=== PATIENT | male | born 1970 | race Caucasian/White ===

== ENCOUNTER → 2017-11-24 | Outpatient (CLI) | payer MEDICAID ==
[~2017-11-24] MED LIST: AMLO-512 PO; ATEN50TA PO; INSLAN SQ; INSU100C14 SQ
[2017-11-24 13:10] LABS: CALCIUM, TOTAL 8.2 mg/dL (8.8-10.5); CREATININE 4.76 mg/dL (0.60-1.30); MAGNESIUM 1.8 mg/dL (1.80-2.40); POTASSIUM 4.6 mmol/L (3.5-5.1)
== END | disposition home or self-care (01) ==
LOC: LABPV 09:42
PROVIDERS: ATTEND Internal Medicine
DX: N17.9 Acute kidney failure, unspecified (principal); R79.89 Other specified abnormal findings of blood chemistry
CPT/HCPCS: 83735

== ENCOUNTER 2018-02-02 16:25 | Inpatient (IN) | payer SELFPAY ==
[~2018-02-02] VITALS: Ht 177.8 cm; Wt 94.4 kg
[2018-02-02 16:54] LABS: GLUCOSE,POINT OF CARE 155 MG/DL (70-110)
[2018-02-02] MEDS ORDERED: AmLODIPine BESYLATE 5 MG TABLET PO ONE (18:45)
[2018-02-02] MEDS ORDERED: ATENOLOL 50 MG TABLET PO ONE (18:45)
[2018-02-02 19:04] LABS: HEMATOCRIT 30.3 % (41-53); HEMOGLOBIN 10.1 g/dL (13.5-17.5); LYMPHOCYTES # (AUTO) 2.1 K/uL (1.0-4.8); LYMPHOCYTES % (AUTO) 12.3 % (22.0-44.0); MEAN CORPUSCULAR HGB CONC 33.4 G/dL (31.0-37.0); MEAN CORPUSCULAR VOLUME 84 fL (80-100); MONOCYTES # (AUTO) 0.8 K/uL (0.1-1.0); MONOCYTES % (AUTO) 4.9 % (2.0-9.0); NEUTROPHILS % (AUTO) 47.2 % (40.0-70.0); PLATELET COUNT (AUTO) 354 K/uL (150-450); RED BLOOD CELL COUNT(AUTO) 3.62 MIL/uL (4.50-5.90)
[2018-02-02 19:07] LABS: EOSINOPHILS % (AUTO) 34.6 % (1.0-6.0)
[2018-02-02 19:18] LABS: CREATININE 6.14 mg/dL (0.60-1.30); POTASSIUM 4.2 mmol/L (3.5-5.1)
[2018-02-02 19:23] LABS: BILIRUBIN,TOTAL 0.2 mg/dL (0.1-1.0); TOTAL PROTEIN, SERUM 5.6 g/dL (6.4-8.2)
[2018-02-02 20:10] LABS: APPEARANCE,URINE CLEAR (CLEAR); BILIRUBIN,URINE NEGATIVE (NEGATIVE); GLUCOSE, URINE (UA) 500 mg/dL (NEGATIVE); KETONES,URINE NEGATIVE (NEGATIVE); LEUKOCYTE ESTERASE ,URINE NEGATIVE (NEGATIVE); NITRATE,URINE NEGATIVE (NEGATIVE); OCCULT BLOOD,URINE SMALL (NEGATIVE); PROTEIN,URINE SEE CONFIRM (NEGATIVE); UROBILINOGEN,URINE 0.2 mg/dL (<=1.0)
[2018-02-02 20:31] LABS: SULFOSALICYLIC ACID,URINE 4+ (Negative)
[2018-02-02 20:32] LABS: RBC,URINE 0-2 /HPF (0-2); WBC,URINE 0-2 /HPF (0-5)
[2018-02-02 20:37] LABS: BACTERIA,URINE Rare /HPF (None Seen); SQUAMOUS EPITHELIAL CELL,UR Few /LPF (None Seen)
[2018-02-02 20:40] LABS: COARSE GRANULAR CASTS,URINE 0-2 /LPF (None Seen)
[2018-02-02] MEDS ORDERED: ACETAMINOPHEN 325 MG TABLET PO PRN (22:00)
[2018-02-02] MEDS ORDERED: 0.9% SODIUM CHLORIDE 10 ML SYRINGE IVP PRN (22:00)
[2018-02-02] MEDS ORDERED: ONDANSETRON HCL 4 MG/2 ML VIAL IVP PRN (22:00)
[2018-02-02] MEDS ORDERED: FUROSEMIDE 40 MG/4 ML VIAL IVP ONE (22:30)
[2018-02-02 23:11] VITALS: BP 183/92
[2018-02-03 04:41] VITALS: BP 179/92
[2018-02-03] MEDS ORDERED: DEXTROSE 50%-WATER 25 GM/50 ML SYRINGE IVP PRN (06:30)
[2018-02-03] MEDS: AmLODIPine BESYLATE 10 MG TABLET PO SCH (07:29)
[2018-02-03 08:04] LABS: GLUCOMETER DEV NAME(LOC) 5S 2Q; GLUCOSE,POINT OF CARE 112 MG/DL (70-110)
[2018-02-03] MEDS ORDERED: INSULIN LISPRO 100 UNITS/ML SQ PRN (08:15)
[2018-02-03] MEDS ORDERED: GLUCAGON,HUMAN RECOMBINANT 1 MG VIAL IM PRN (08:15)
[2018-02-03] MEDS ORDERED: ZOLPIDEM TARTRATE 5 MG TABLET PO PRN (08:15)
[2018-02-03] MEDS: IPRATROPIUM BROMIDE 0.5 MG/2.5 ML NEB SOLUTION NEB SCH ×3 (08:15→20:20)
[2018-02-03] MEDS ORDERED: ONDANSETRON HCL 4 MG/2 ML VIAL IVP PRN (08:15)
[2018-02-03] MEDS ORDERED: ALBUTEROL SULFATE 2.5 MG/0.5 ML NEB SOLUTION NEB PRN (08:15)
[2018-02-03] MEDS ORDERED: IPRATROPIUM BROMIDE 0.5 MG/2.5 ML NEB SOLUTION NEB PRN (08:15)
[2018-02-03] MEDS ORDERED: 0.9% SODIUM CHLORIDE 10 ML SYRINGE IVP PRN (08:15)
[2018-02-03] MEDS: ALBUTEROL SULFATE 2.5 MG/0.5 ML NEB SOLUTION NEB SCH ×3 (08:15→20:20)
[2018-02-03 09:14] LABS: CHOL/HDL RATIO 5.6 (4.2-7.3); THYROID STIMULATING HORMONE 1.51 uIU/mL (0.36-3.74)
[2018-02-03 09:16] LABS: HEMOGLOBIN A1C 6.1 % (4.5-6.2)
[2018-02-03] MEDS: HEPARIN SODIUM,PORCINE 5,000 UNITS/ML VIAL SQ SCH ×3 (09:48→23:12)
[2018-02-03] MEDS: PANTOPRAZOLE SODIUM 40 MG/VIAL IVP SCH (09:48)
[2018-02-03] MEDS: FUROSEMIDE 40 MG/4 ML VIAL IVP SCH ×2 (09:48→20:38)
[2018-02-03] MEDS: DiphenhydrAMINE HCL 25 MG CAPSULE PO PRN ×2 (09:48→17:54)
[2018-02-03] MEDS: ATENOLOL 50 MG TABLET PO SCH (11:06)
[2018-02-03 11:35] VITALS: BP 145/80
[2018-02-03] MEDS: INSULIN LISPRO 100 UNITS/ML SQ PRN ×3 (11:39→20:41)
[2018-02-03 12:06] LABS: % IRON SATURATION 26.2 % (30-44)
[2018-02-03 13:02] LABS: FOLATE SERUM 5.7 ng/mL (5.4-)
[2018-02-03 14:18] LABS: GLUCOMETER DEV NAME(LOC) 5S 2Q; GLUCOSE,POINT OF CARE 163 MG/DL (70-110)
[2018-02-03 14:36] VITALS: BP 145/74
[2018-02-03 19:35] VITALS: BP 172/74
[2018-02-03 19:52] LABS: GLUCOMETER DEV NAME(LOC) 5S 2Q; GLUCOSE,POINT OF CARE 216 MG/DL (70-110)
[2018-02-03] MEDS: INSULIN GLARGINE,HUM.REC.ANLOG 100 UNITS/ML SQ SCH (20:42)
[2018-02-03 23:04] VITALS: BP 179/88
[2018-02-03] MEDS: CloNIDine HCL 0.1 MG TABLET PO PRN (23:12)
[2018-02-04 00:23] LABS: GLUCOMETER DEV NAME(LOC) 5S 2Q; GLUCOSE,POINT OF CARE 163 MG/DL (70-110)
[2018-02-04] MEDS: ALBUTEROL SULFATE 2.5 MG/0.5 ML NEB SOLUTION NEB SCH ×4 (02:00→19:02)
[2018-02-04] MEDS: IPRATROPIUM BROMIDE 0.5 MG/2.5 ML NEB SOLUTION NEB SCH ×4 (02:00→19:02)
[2018-02-04 03:49] VITALS: BP 168/79
[2018-02-04 06:39] LABS: BASOPHILS % (AUTO) 0.9 % (0.0-2.0); HEMATOCRIT 27.5 % (41-53); HEMOGLOBIN 9.5 g/dL (13.5-17.5); LYMPHOCYTES # (AUTO) 2.6 K/uL (1.0-4.8); MEAN CORPUSCULAR HEMOGLOBIN 28.4 pg (26.0-34.0); MEAN CORPUSCULAR HGB CONC 34.5 G/dL (31.0-37.0); MEAN CORPUSCULAR VOLUME 83 fL (80-100); MONOCYTES # (AUTO) 0.7 K/uL (0.1-1.0); MONOCYTES % (AUTO) 4.1 % (2.0-9.0); NEUTROPHILS # (AUTO) 7.3 K/uL (1.8-7.7); NEUTROPHILS % (AUTO) 42.9 % (40.0-70.0); PLATELET COUNT (AUTO) 323 K/uL (150-450); RED BLOOD CELL COUNT(AUTO) 3.34 MIL/uL (4.50-5.90); RED CELL DISTRIBUTION WIDTH 14.9 % (11.5-14.5)
[2018-02-04 06:45] LABS: CALCIUM, TOTAL 7.2 mg/dL (8.8-10.5); CREATININE 6.58 mg/dL (0.60-1.30); MAGNESIUM 1.6 mg/dL (1.80-2.40); POTASSIUM 4.5 mmol/L (3.5-5.1)
[2018-02-04 06:58] LABS: EOSINOPHILS % (AUTO) 37.1 % (1.0-6.0)
[2018-02-04 07:34] VITALS: BP 158/86
[2018-02-04] MEDS: HEPARIN SODIUM,PORCINE 5,000 UNITS/ML VIAL SQ SCH ×3 (08:14→23:53)
[2018-02-04] MEDS: AmLODIPine BESYLATE 10 MG TABLET PO SCH (08:14)
[2018-02-04] MEDS: PANTOPRAZOLE SODIUM 40 MG/VIAL IVP SCH (08:15)
[2018-02-04] MEDS: FUROSEMIDE 40 MG/4 ML VIAL IVP SCH ×2 (08:15→21:07)
[2018-02-04] MEDS: ATENOLOL 50 MG TABLET PO SCH (09:43)
[2018-02-04] MEDS: CHOLECALCIFEROL (VIT D3) 1,000 UNITS TABLET PO SCH (09:43)
[2018-02-04 10:40] VITALS: BP 171/87
[2018-02-04 11:10] VITALS: BP 160/85
[2018-02-04] MEDS ORDERED: MAGNESIUM SULFATE 3 GM in DEXTROSE 5%-WATER 100 ML IV ONE (13:00)
[2018-02-04] MEDS ORDERED: SODIUM CHLORIDE 0.9% 100 ML ONE (13:06)
[2018-02-04] MEDS: SOD FERRIC GLUC COMPLX/SUCROSE 125 MG in SODIUM CHLORIDE 0.9% 100 ML IV SCH (13:14)
[2018-02-04 14:47] VITALS: BP 150/81
[2018-02-04 16:41] LABS: CREATININE,URINE 46.5 mg/dL (30.0-125.0)
[2018-02-04] MEDS: DiphenhydrAMINE HCL 25 MG CAPSULE PO PRN (16:45)
[2018-02-04 16:52] LABS: CREATININE,SERUM FOR CRCL 6.58 mg/dL (0.60-1.30)
[2018-02-04] MEDS: INSULIN LISPRO 100 UNITS/ML SQ PRN (17:57)
[2018-02-04 20:19] VITALS: BP 149/86
[2018-02-04] MEDS: INSULIN GLARGINE,HUM.REC.ANLOG 100 UNITS/ML SQ SCH (21:12)
[2018-02-05] VITALS (8 sets, daily range): BP systolic 149–180; BP diastolic 72–90
[2018-02-05] MEDS: ALBUTEROL SULFATE 2.5 MG/0.5 ML NEB SOLUTION NEB SCH ×4 (01:57→20:36)
[2018-02-05] MEDS: IPRATROPIUM BROMIDE 0.5 MG/2.5 ML NEB SOLUTION NEB SCH ×4 (01:57→20:36)
[2018-02-05 03:14] LABS: GLUCOMETER DEV NAME(LOC) 5S 2Q; GLUCOSE,POINT OF CARE 136 MG/DL (70-110)
[2018-02-05 03:14] LABS: GLUCOMETER DEV NAME(LOC) 5S 2Q; GLUCOSE,POINT OF CARE 136 MG/DL (70-110)
[2018-02-05 03:14] LABS: GLUCOMETER DEV NAME(LOC) 5S 1M; GLUCOSE,POINT OF CARE 181 MG/DL (70-110)
[2018-02-05 03:14] LABS: GLUCOMETER DEV NAME(LOC) 5S 1M; GLUCOSE,POINT OF CARE 88 MG/DL (70-110)
[2018-02-05 06:39] LABS: GLUCOMETER DEV NAME(LOC) 5S 2Q; GLUCOSE,POINT OF CARE 94 MG/DL (70-110)
[2018-02-05 07:20] LABS: BASOPHILS % (AUTO) 0.8 % (0.0-2.0); HEMATOCRIT 28.9 % (41-53); HEMOGLOBIN 9.7 g/dL (13.5-17.5); LYMPHOCYTES # (AUTO) 2.1 K/uL (1.0-4.8); LYMPHOCYTES % (AUTO) 13.3 % (22.0-44.0); MEAN CORPUSCULAR HEMOGLOBIN 27.8 pg (26.0-34.0); MEAN CORPUSCULAR HGB CONC 33.7 G/dL (31.0-37.0); MEAN CORPUSCULAR VOLUME 83 fL (80-100); MONOCYTES # (AUTO) 0.7 K/uL (0.1-1.0); MONOCYTES % (AUTO) 4.6 % (2.0-9.0); NEUTROPHILS # (AUTO) 7.4 K/uL (1.8-7.7); NEUTROPHILS % (AUTO) 45.7 % (40.0-70.0); PLATELET COUNT (AUTO) 338 K/uL (150-450); RED CELL DISTRIBUTION WIDTH 14.6 % (11.5-14.5)
[2018-02-05 07:31] LABS: EOSINOPHILS % (AUTO) 35.6 % (1.0-6.0)
[2018-02-05 07:49] LABS: CALCIUM, TOTAL 7.3 mg/dL (8.8-10.5); CREATININE 6.89 mg/dL (0.60-1.30); MAGNESIUM 2.3 mg/dL (1.80-2.40); PHOSPHORUS 5.7 mg/dL (2.5-4.9); POTASSIUM 4.5 mmol/L (3.5-5.1)
[2018-02-05] MEDS: HEPARIN SODIUM,PORCINE 5,000 UNITS/ML VIAL SQ SCH ×2 (08:00→16:00)
[2018-02-05] MEDS: FUROSEMIDE 40 MG/4 ML VIAL IVP SCH ×2 (08:15→20:22)
[2018-02-05] MEDS: ATENOLOL 50 MG TABLET PO SCH (08:15)
[2018-02-05] MEDS: CHOLECALCIFEROL (VIT D3) 1,000 UNITS TABLET PO SCH (08:15)
[2018-02-05] MEDS: PANTOPRAZOLE SODIUM 40 MG/VIAL IVP SCH (08:16)
[2018-02-05] MEDS: AmLODIPine BESYLATE 10 MG TABLET PO SCH (11:09)
[2018-02-05] MEDS: INSULIN LISPRO 100 UNITS/ML SQ PRN ×3 (11:55→20:23)
[2018-02-05] MEDS ORDERED: HEPARIN SODIUM 1000 UNITS/NS 500 ML ONE (12:32)
[2018-02-05] MEDS ORDERED: LIDOCAINE HCL/PF 1% 30 ML VIAL ONE (12:32)
[2018-02-05] MEDS ORDERED: HEPARIN SODIUM,PORCINE 1,000 UNITS/ML 10 ML VIAL ONE (12:33)
[2018-02-05] MEDS: SOD FERRIC GLUC COMPLX/SUCROSE 125 MG in SODIUM CHLORIDE 0.9% 100 ML IV SCH (13:06)
[2018-02-05] MEDS ORDERED: NALOXONE HCL 0.4 MG/ML VIAL ONE (13:28)
[2018-02-05] MEDS ORDERED: FentaNYL CITRATE-PF 100 MCG/2 ML VIAL ONE (13:28)
[2018-02-05] MEDS ORDERED: MIDAZOLAM HCL 2 MG/2 ML VIAL ONE (13:28)
[2018-02-05] MEDS ORDERED: FLUMAZENIL 0.1 MG/ML 5 ML VIAL IVP ONE (13:29)
[2018-02-05] MEDS ORDERED: VANCOMYCIN HCL 1 GM/D5% WATER 200 ML IV ONE ×2 (13:45→14:05)
[2018-02-05] MEDS ORDERED: MIDAZOLAM HCL 2 MG/2 ML VIAL IVP ONE (14:21)
[2018-02-05] MEDS ORDERED: FentaNYL CITRATE-PF 100 MCG/2 ML VIAL IVP ONE (14:21)
[2018-02-05] MEDS ORDERED: ACETAMINOPHEN 650 MG/20.3 ML SOLUTION UDCUP PO PRN (16:45)
[2018-02-05] MEDS: ACETAMINOPHEN 325 MG TABLET PO PRN ×2 (16:52→20:22)
[2018-02-05 19:52] LABS: GLUCOMETER DEV NAME(LOC) 5S 2Q; GLUCOSE,POINT OF CARE 186 MG/DL (70-110)
[2018-02-05 20:04] LABS: GLUCOMETER DEV NAME(LOC) 5S 1M; GLUCOSE,POINT OF CARE 148 MG/DL (70-110)
[2018-02-05] MEDS: DiphenhydrAMINE HCL 25 MG CAPSULE PO PRN (20:22)
[2018-02-05] MEDS: INSULIN GLARGINE,HUM.REC.ANLOG 100 UNITS/ML SQ SCH (20:23)
[2018-02-06] VITALS (7 sets, daily range): BP systolic 116–177; BP diastolic 71–92
[2018-02-06] MEDS: HEPARIN SODIUM,PORCINE 5,000 UNITS/ML VIAL SQ SCH ×4 (00:02→23:53)
[2018-02-06] MEDS: IPRATROPIUM BROMIDE 0.5 MG/2.5 ML NEB SOLUTION NEB SCH ×4 (02:00→20:00)
[2018-02-06] MEDS: ALBUTEROL SULFATE 2.5 MG/0.5 ML NEB SOLUTION NEB SCH ×4 (02:00→20:00)
[2018-02-06 06:06] LABS: BASOPHILS % (AUTO) 0.8 % (0.0-2.0); HEMATOCRIT 30.9 % (41-53); HEMOGLOBIN 10.4 g/dL (13.5-17.5); LYMPHOCYTES # (AUTO) 1.4 K/uL (1.0-4.8); LYMPHOCYTES % (AUTO) 9.5 % (22.0-44.0); MEAN CORPUSCULAR HEMOGLOBIN 27.8 pg (26.0-34.0); MEAN CORPUSCULAR HGB CONC 33.8 G/dL (31.0-37.0); MEAN CORPUSCULAR VOLUME 82 fL (80-100); MONOCYTES # (AUTO) 0.6 K/uL (0.1-1.0); MONOCYTES % (AUTO) 4.3 % (2.0-9.0); NEUTROPHILS # (AUTO) 7.5 K/uL (1.8-7.7); NEUTROPHILS % (AUTO) 52.5 % (40.0-70.0); PLATELET COUNT (AUTO) 314 K/uL (150-450); RED BLOOD CELL COUNT(AUTO) 3.76 MIL/uL (4.50-5.90); RED CELL DISTRIBUTION WIDTH 14.9 % (11.5-14.5)
[2018-02-06 06:19] LABS: CALCIUM, TOTAL 7.5 mg/dL (8.8-10.5); CREATININE 5.32 mg/dL (0.60-1.30); MAGNESIUM 1.9 mg/dL (1.80-2.40); POTASSIUM 4.1 mmol/L (3.5-5.1)
[2018-02-06 06:42] LABS: EOSINOPHILS % (AUTO) 32.9 % (1.0-6.0)
[2018-02-06] MEDS: PANTOPRAZOLE SODIUM 40 MG/VIAL IVP SCH (08:44)
[2018-02-06] MEDS: CHOLECALCIFEROL (VIT D3) 1,000 UNITS TABLET PO SCH (08:44)
[2018-02-06] MEDS: FUROSEMIDE 40 MG/4 ML VIAL IVP SCH ×2 (08:44→21:31)
[2018-02-06] MEDS ORDERED: CALCITRIOL 0.25 MCG CAPSULE PO ONE (09:00)
[2018-02-06 11:33] LABS: GLUCOMETER DEV NAME(LOC) 5S 1M; GLUCOSE,POINT OF CARE 159 MG/DL (70-110)
[2018-02-06 11:33] LABS: GLUCOMETER DEV NAME(LOC) 5S 2Q; GLUCOSE,POINT OF CARE 83 MG/DL (70-110)
[2018-02-06] MEDS: AmLODIPine BESYLATE 10 MG TABLET PO SCH (11:34)
[2018-02-06] MEDS: ATENOLOL 50 MG TABLET PO SCH (11:34)
[2018-02-06] MEDS: SOD FERRIC GLUC COMPLX/SUCROSE 125 MG in SODIUM CHLORIDE 0.9% 100 ML IV SCH (15:27)
[2018-02-06] MEDS ORDERED: HEPARIN SODIUM,PORCINE 1,000 UNITS/ML VIAL IVP ONE (17:25)
[2018-02-06 17:28] LABS: GLUCOMETER DEV NAME(LOC) 5S 2Q; GLUCOSE,POINT OF CARE 139 MG/DL (70-110)
[2018-02-06 17:28] LABS: GLUCOMETER DEV NAME(LOC) 5S 1M; GLUCOSE,POINT OF CARE 216 MG/DL (70-110)
[2018-02-06] MEDS: INSULIN LISPRO 100 UNITS/ML SQ PRN ×2 (17:48→21:34)
[2018-02-06] MEDS: INSULIN GLARGINE,HUM.REC.ANLOG 100 UNITS/ML SQ SCH (21:33)
[2018-02-07 00:08] LABS: GLUCOMETER DEV NAME(LOC) 6N 2D; GLUCOSE,POINT OF CARE 214 MG/DL (70-110)
[2018-02-07] MEDS: ALBUTEROL SULFATE 2.5 MG/0.5 ML NEB SOLUTION NEB SCH ×4 (02:00→20:50)
[2018-02-07] MEDS: IPRATROPIUM BROMIDE 0.5 MG/2.5 ML NEB SOLUTION NEB SCH ×4 (02:00→20:50)
[2018-02-07 04:23] VITALS: BP 146/80
[2018-02-07 07:14] LABS: GLUCOMETER DEV NAME(LOC) 6N 2D; GLUCOSE,POINT OF CARE 83 MG/DL (70-110)
[2018-02-07] MEDS: AmLODIPine BESYLATE 10 MG TABLET PO SCH (08:59)
[2018-02-07] MEDS: PANTOPRAZOLE SODIUM 40 MG/VIAL IVP SCH (08:59)
[2018-02-07] MEDS: FUROSEMIDE 40 MG/4 ML VIAL IVP SCH ×2 (08:59→20:42)
[2018-02-07] MEDS: HEPARIN SODIUM,PORCINE 5,000 UNITS/ML VIAL SQ SCH ×2 (08:59→16:00)
[2018-02-07] MEDS: ATENOLOL 50 MG TABLET PO SCH (09:00)
[2018-02-07 09:10] VITALS: BP 157/84
[2018-02-07 11:53] VITALS: BP 156/83
[2018-02-07] MEDS ORDERED: SODIUM CHLORIDE 0.9% 250 ML IV ONE (15:34)
[2018-02-07] MEDS: SOD FERRIC GLUC COMPLX/SUCROSE 125 MG in SODIUM CHLORIDE 0.9% 100 ML IV SCH (15:44)
[2018-02-07] MEDS ORDERED: HEPARIN SODIUM,PORCINE 1,000 UNITS/ML VIAL IVP ONE (16:22)
[2018-02-07 16:25] VITALS: BP 153/82
[2018-02-07] MEDS: INSULIN LISPRO 100 UNITS/ML SQ PRN ×2 (17:35→20:41)
[2018-02-07 18:04] LABS: GLUCOMETER DEV NAME(LOC) 6N 1E; GLUCOSE,POINT OF CARE 224 MG/DL (70-110)
[2018-02-07 19:30] LABS: GLUCOMETER DEV NAME(LOC) 6N 2D; GLUCOSE,POINT OF CARE 132 MG/DL (70-110)
[2018-02-07 19:44] VITALS: BP 162/90
[2018-02-07] MEDS: INSULIN GLARGINE,HUM.REC.ANLOG 100 UNITS/ML SQ SCH (20:42)
[2018-02-07 22:19] LABS: GLUCOMETER DEV NAME(LOC) 6N 2D; GLUCOSE,POINT OF CARE 163 MG/DL (70-110)
[2018-02-07 23:18] VITALS: BP 141/62
[2018-02-08] MEDS: HEPARIN SODIUM,PORCINE 5,000 UNITS/ML VIAL SQ SCH ×3 (00:23→16:00)
[2018-02-08] MEDS: IPRATROPIUM BROMIDE 0.5 MG/2.5 ML NEB SOLUTION NEB SCH ×4 (02:00→20:00)
[2018-02-08] MEDS: ALBUTEROL SULFATE 2.5 MG/0.5 ML NEB SOLUTION NEB SCH ×4 (02:00→20:00)
[2018-02-08 04:42] VITALS: BP 145/79
[2018-02-08] MEDS ORDERED: SODIUM CHLORIDE 0.9% 1,000 ML IV ONE ×2 (05:42)
[2018-02-08 06:18] LABS: BASOPHILS % (AUTO) 0.7 % (0.0-2.0); HEMATOCRIT 28.3 % (41-53); HEMOGLOBIN 9.7 g/dL (13.5-17.5); LYMPHOCYTES # (AUTO) 2.1 K/uL (1.0-4.8); LYMPHOCYTES % (AUTO) 14.7 % (22.0-44.0); MEAN CORPUSCULAR HEMOGLOBIN 28.3 pg (26.0-34.0); MEAN CORPUSCULAR HGB CONC 34.4 G/dL (31.0-37.0); MEAN CORPUSCULAR VOLUME 82 fL (80-100); MONOCYTES # (AUTO) 1.1 K/uL (0.1-1.0); MONOCYTES % (AUTO) 7.4 % (2.0-9.0); NEUTROPHILS # (AUTO) 6.5 K/uL (1.8-7.7); NEUTROPHILS % (AUTO) 45.5 % (40.0-70.0); PLATELET COUNT (AUTO) 271 K/uL (150-450); RED BLOOD CELL COUNT(AUTO) 3.44 MIL/uL (4.50-5.90); RED CELL DISTRIBUTION WIDTH 15.2 % (11.5-14.5)
[2018-02-08 06:21] LABS: EOSINOPHILS % (AUTO) 31.7 % (1.0-6.0)
[2018-02-08 06:32] LABS: CALCIUM, TOTAL 7.1 mg/dL (8.8-10.5); CREATININE 5.48 mg/dL (0.60-1.30); MAGNESIUM 1.7 mg/dL (1.80-2.40); POTASSIUM 4.4 mmol/L (3.5-5.1)
[2018-02-08 06:55] LABS: GLUCOMETER DEV NAME(LOC) 6N 1E; GLUCOSE,POINT OF CARE 112 MG/DL (70-110)
[2018-02-08] MEDS: PANTOPRAZOLE SODIUM 40 MG/VIAL IVP SCH (08:30)
[2018-02-08] MEDS: ATENOLOL 50 MG TABLET PO SCH (09:25)
[2018-02-08] MEDS: FUROSEMIDE 40 MG/4 ML VIAL IVP SCH ×2 (09:25→21:25)
[2018-02-08] MEDS: AmLODIPine BESYLATE 10 MG TABLET PO SCH (09:25)
[2018-02-08 11:19] VITALS: BP 164/85
[2018-02-08] MEDS: EPOETIN ALFA 10,000 UNITS/ML VIAL SQ SCH (11:22)
[2018-02-08] MEDS: INSULIN LISPRO 100 UNITS/ML SQ PRN ×3 (12:04→21:35)
[2018-02-08] MEDS: SOD FERRIC GLUC COMPLX/SUCROSE 125 MG in SODIUM CHLORIDE 0.9% 100 ML IV SCH (15:03)
[2018-02-08 15:58] VITALS: BP 158/84
[2018-02-08] MEDS ORDERED: HEPARIN SODIUM,PORCINE 1,000 UNITS/ML VIAL ONE (17:29)
[2018-02-08 17:34] LABS: GLUCOMETER DEV NAME(LOC) 6N 1E; GLUCOSE,POINT OF CARE 156 MG/DL (70-110)
[2018-02-08 18:18] LABS: GLUCOMETER DEV NAME(LOC) 6N 1E; GLUCOSE,POINT OF CARE 173 MG/DL (70-110)
[2018-02-08 19:24] VITALS: BP 160/78
[2018-02-08] MEDS: INSULIN GLARGINE,HUM.REC.ANLOG 100 UNITS/ML SQ SCH (21:28)
[2018-02-09] VITALS (7 sets, daily range): BP systolic 141–163; BP diastolic 68–86
[2018-02-09] MEDS: CloNIDine HCL 0.1 MG TABLET PO PRN (00:43)
[2018-02-09] MEDS: HEPARIN SODIUM,PORCINE 5,000 UNITS/ML VIAL SQ SCH ×4 (00:44→23:28)
[2018-02-09] MEDS: IPRATROPIUM BROMIDE 0.5 MG/2.5 ML NEB SOLUTION NEB SCH ×4 (02:00→20:00)
[2018-02-09] MEDS: ALBUTEROL SULFATE 2.5 MG/0.5 ML NEB SOLUTION NEB SCH ×4 (02:00→20:00)
[2018-02-09 02:19] LABS: GLUCOMETER DEV NAME(LOC) 6N 1E; GLUCOSE,POINT OF CARE 150 MG/DL (70-110)
[2018-02-09 07:08] LABS: GLUCOMETER DEV NAME(LOC) 6N 2D; GLUCOSE,POINT OF CARE 86 MG/DL (70-110)
[2018-02-09] MEDS: AmLODIPine BESYLATE 10 MG TABLET PO SCH (09:22)
[2018-02-09] MEDS: FUROSEMIDE 40 MG/4 ML VIAL IVP SCH ×2 (09:22→20:01)
[2018-02-09] MEDS: ATENOLOL 50 MG TABLET PO SCH (09:22)
[2018-02-09] MEDS: PANTOPRAZOLE SODIUM 40 MG/VIAL IVP SCH (09:25)
[2018-02-09] MEDS: SOD FERRIC GLUC COMPLX/SUCROSE 125 MG in SODIUM CHLORIDE 0.9% 100 ML IV SCH (11:23)
[2018-02-09] MEDS ORDERED: SODIUM CHLORIDE 0.9% 1,000 ML IV ONE ×2 (12:00→14:00)
[2018-02-09 12:04] LABS: GLUCOMETER DEV NAME(LOC) 6N 1E; GLUCOSE,POINT OF CARE 81 MG/DL (70-110)
[2018-02-09] MEDS ORDERED: LIDOCAINE HCL/PF 1% 30 ML VIAL ONE (12:17)
[2018-02-09] MEDS ORDERED: HEPARIN SODIUM,PORCINE 5,000 UNITS/ML VIAL SQ ONE (12:20)
[2018-02-09] MEDS ORDERED: SODIUM CHLORIDE 0.9% 250 ML IV ONE (12:21)
[2018-02-09] MEDS ORDERED: FentaNYL CITRATE-PF 100 MCG/2 ML VIAL IVP PRN ×2 (13:30→13:45)
[2018-02-09] MEDS ORDERED: ONDANSETRON HCL 4 MG/2 ML VIAL IVP PRN (13:30)
[2018-02-09] MEDS ORDERED: HYDROmorphone 2 MG/ML SYRINGE IVP PRN (13:30)
[2018-02-09] MEDS ORDERED: MIDAZOLAM HCL 2 MG/2 ML VIAL IVP PRN (13:30)
[2018-02-09 17:53] LABS: GLUCOMETER DEV NAME(LOC) 6N 2D; GLUCOSE,POINT OF CARE 136 MG/DL (70-110)
[2018-02-09] MEDS: INSULIN LISPRO 100 UNITS/ML SQ PRN (17:53)
[2018-02-09] MEDS: INSULIN GLARGINE,HUM.REC.ANLOG 100 UNITS/ML SQ SCH (20:54)
[2018-02-10] VITALS (7 sets, daily range): BP systolic 136–169; BP diastolic 68–89
[2018-02-10] MEDS: ALBUTEROL SULFATE 2.5 MG/0.5 ML NEB SOLUTION NEB SCH ×4 (02:00→20:00)
[2018-02-10] MEDS: IPRATROPIUM BROMIDE 0.5 MG/2.5 ML NEB SOLUTION NEB SCH ×4 (02:00→20:00)
[2018-02-10] MEDS ORDERED: FentaNYL CITRATE-PF 100 MCG/2 ML VIAL IVP ONE (05:26)
[2018-02-10] MEDS ORDERED: PROPOFOL 1% 20 ML VIAL IVP ONE (05:26)
[2018-02-10] MEDS ORDERED: HEPARIN SODIUM,PORCINE 1,000 UNITS/ML 10 ML VIAL IVP ONE (05:26)
[2018-02-10] MEDS ORDERED: MIDAZOLAM HCL 2 MG/2 ML VIAL IVP ONE (05:26)
[2018-02-10 05:39] LABS: GLUCOMETER DEV NAME(LOC) 6N 2D; GLUCOSE,POINT OF CARE 125 MG/DL (70-110)
[2018-02-10 07:05] LABS: CALCIUM, TOTAL 7.9 mg/dL (8.8-10.5); CREATININE 5.77 mg/dL (0.60-1.30); MAGNESIUM 1.6 mg/dL (1.80-2.40); PHOSPHORUS 4.6 mg/dL (2.5-4.9); POTASSIUM 4.2 mmol/L (3.5-5.1)
[2018-02-10 07:23] LABS: GLUCOMETER DEV NAME(LOC) 6N 1E; GLUCOSE,POINT OF CARE 60 MG/DL (70-110)
[2018-02-10 08:58] LABS: GLUCOMETER DEV NAME(LOC) 6N 1E; GLUCOSE,POINT OF CARE 114 MG/DL (70-110)
[2018-02-10] MEDS: FUROSEMIDE 40 MG/4 ML VIAL IVP SCH ×2 (09:00→20:59)
[2018-02-10] MEDS: PANTOPRAZOLE SODIUM 40 MG/VIAL IVP SCH (11:41)
[2018-02-10] MEDS: HEPARIN SODIUM,PORCINE 5,000 UNITS/ML VIAL SQ SCH ×3 (11:42→23:53)
[2018-02-10] MEDS: EPOETIN ALFA 10,000 UNITS/ML VIAL SQ SCH (11:42)
[2018-02-10] MEDS: ATENOLOL 50 MG TABLET PO SCH (11:43)
[2018-02-10] MEDS: AmLODIPine BESYLATE 10 MG TABLET PO SCH ×2 (11:43→11:45)
[2018-02-10 12:18] LABS: GLUCOMETER DEV NAME(LOC) 6N 1E; GLUCOSE,POINT OF CARE 156 MG/DL (70-110)
[2018-02-10] MEDS: INSULIN LISPRO 100 UNITS/ML SQ PRN ×2 (12:44→18:19)
[2018-02-10] MEDS: SOD FERRIC GLUC COMPLX/SUCROSE 125 MG in SODIUM CHLORIDE 0.9% 100 ML IV SCH (12:49)
[2018-02-10 17:43] LABS: GLUCOMETER DEV NAME(LOC) 6N 1E; GLUCOSE,POINT OF CARE 185 MG/DL (70-110)
[2018-02-10] MEDS: INSULIN GLARGINE,HUM.REC.ANLOG 100 UNITS/ML SQ SCH (21:00)
[2018-02-11] MEDS: IPRATROPIUM BROMIDE 0.5 MG/2.5 ML NEB SOLUTION NEB SCH ×4 (02:00→20:00)
[2018-02-11] MEDS: ALBUTEROL SULFATE 2.5 MG/0.5 ML NEB SOLUTION NEB SCH ×4 (02:00→20:00)
[2018-02-11 05:35] VITALS: BP 125/80
[2018-02-11 06:34] LABS: GLUCOMETER DEV NAME(LOC) 6N 1E; GLUCOSE,POINT OF CARE 130 MG/DL (70-110)
[2018-02-11 06:34] LABS: GLUCOMETER DEV NAME(LOC) 6N 1E; GLUCOSE,POINT OF CARE 137 MG/DL (70-110)
[2018-02-11 07:37] VITALS: BP 150/66
[2018-02-11] MEDS: PANTOPRAZOLE SODIUM 40 MG/VIAL IVP SCH (08:29)
[2018-02-11] MEDS: ATENOLOL 50 MG TABLET PO SCH (08:29)
[2018-02-11] MEDS: HEPARIN SODIUM,PORCINE 5,000 UNITS/ML VIAL SQ SCH ×3 (08:30→23:31)
[2018-02-11] MEDS: FUROSEMIDE 40 MG/4 ML VIAL IVP SCH ×2 (08:49→20:02)
[2018-02-11 11:51] VITALS: BP 146/76
[2018-02-11] MEDS: SOD FERRIC GLUC COMPLX/SUCROSE 125 MG in SODIUM CHLORIDE 0.9% 100 ML IV SCH (14:56)
[2018-02-11 15:24] VITALS: BP 145/85
[2018-02-11] MEDS: INSULIN LISPRO 100 UNITS/ML SQ PRN ×2 (17:58→20:12)
[2018-02-11 18:08] LABS: GLUCOMETER DEV NAME(LOC) 6N 2D; GLUCOSE,POINT OF CARE 189 MG/DL (70-110)
[2018-02-11 19:53] LABS: GLUCOMETER DEV NAME(LOC) 6N 1E; GLUCOSE,POINT OF CARE 178 MG/DL (70-110)
[2018-02-11 19:55] VITALS: BP 156/70
[2018-02-11] MEDS: INSULIN GLARGINE,HUM.REC.ANLOG 100 UNITS/ML SQ SCH (20:11)
[2018-02-11 20:49] LABS: GLUCOMETER DEV NAME(LOC) 6N 2D; GLUCOSE,POINT OF CARE 159 MG/DL (70-110)
[2018-02-11 23:55] VITALS: BP 142/72
[2018-02-12] MEDS: ALBUTEROL SULFATE 2.5 MG/0.5 ML NEB SOLUTION NEB SCH ×3 (02:00→14:00)
[2018-02-12] MEDS: IPRATROPIUM BROMIDE 0.5 MG/2.5 ML NEB SOLUTION NEB SCH ×3 (02:00→14:00)
[2018-02-12 05:23] LABS: GLUCOMETER DEV NAME(LOC) 6N 1E; GLUCOSE,POINT OF CARE 139 MG/DL (70-110)
[2018-02-12 05:49] VITALS: BP 157/78
[2018-02-12] MEDS ORDERED: SODIUM CHLORIDE 0.9% 2,000 ML IV ONE (05:59)
[2018-02-12] MEDS: PANTOPRAZOLE SODIUM 40 MG/VIAL IVP SCH (10:27)
[2018-02-12] MEDS: EPOETIN ALFA 10,000 UNITS/ML VIAL SQ SCH (10:27)
[2018-02-12] MEDS: FUROSEMIDE 40 MG/4 ML VIAL IVP SCH (10:27)
[2018-02-12] MEDS: AmLODIPine BESYLATE 10 MG TABLET PO SCH (10:27)
[2018-02-12] MEDS: HEPARIN SODIUM,PORCINE 5,000 UNITS/ML VIAL SQ SCH (10:27)
[2018-02-12] MEDS: ATENOLOL 50 MG TABLET PO SCH (10:27)
[2018-02-12 11:38] VITALS: BP 154/95
[2018-02-12 14:14] LABS: GLUCOMETER DEV NAME(LOC) 6N 2D; GLUCOSE,POINT OF CARE 185 MG/DL (70-110)
[2018-02-12] MEDS: INSULIN LISPRO 100 UNITS/ML SQ PRN (14:29)
[2018-02-12] MEDS: SOD FERRIC GLUC COMPLX/SUCROSE 125 MG in SODIUM CHLORIDE 0.9% 100 ML IV SCH (14:30)
[2018-02-12] MEDS ORDERED: LANC-962 (16:21)
[2018-02-12] MEDS ORDERED: BLOO-140 (16:21)
[2018-02-12] MEDS ORDERED: [UNRECOGNIZED DRUG - CODE] (16:23)
[2018-02-12] MEDS ORDERED: [UNRECOGNIZED DRUG - CODE] (16:23)
[2018-02-12] MEDS ORDERED: ASPI-1182 PO (16:24)
[2018-02-12] MEDS ORDERED: HEPARIN SODIUM,PORCINE 1,000 UNITS/ML VIAL ONE (16:40)
== END 2018-02-12 16:40 | disposition home or self-care (01) | DRG 673 ==
LOC: EMS 16:26 → 5S 22:07 → 6N 02-06 18:40
PROVIDERS: ADMIT Internal Medicine; ATTEND Internal Medicine
PROC: 5A1D70Z Performance of Urinary Filtration, Intermittent, Less than 6 Hours Per Day (ICD-10-PCS; 2018-02-05)
PROC: 0JH63XZ Insertion of Tunneled Vascular Access Device into Chest Subcutaneous Tissue and Fascia, Percutaneous Approach (ICD-10-PCS; 2018-02-05)
PROC: 02HV33Z Insertion of Infusion Device into Superior Vena Cava, Percutaneous Approach (ICD-10-PCS; 2018-02-05)
PROC: B548ZZA Ultrasonography of Superior Vena Cava, Guidance (ICD-10-PCS; 2018-02-05)
PROC: 5A1D70Z Performance of Urinary Filtration, Intermittent, Less than 6 Hours Per Day (ICD-10-PCS; 2018-02-08)
PROC: 03180ZD Bypass Left Brachial Artery to Upper Arm Vein, Open Approach (ICD-10-PCS; principal; 2018-02-09 15:00)
PROC: 5A1D70Z Performance of Urinary Filtration, Intermittent, Less than 6 Hours Per Day (ICD-10-PCS; 2018-02-10)
PROC: 5A1D70Z Performance of Urinary Filtration, Intermittent, Less than 6 Hours Per Day (ICD-10-PCS; 2018-02-12)
DX: I12.0 Hypertensive chronic kidney disease with stage 5 chronic kidney disease or end stage renal disease (principal); N18.6 End stage renal disease; N17.9 Acute kidney failure, unspecified; E87.2 Acidosis; D63.1 Anemia in chronic kidney disease; E11.22 Type 2 diabetes mellitus with diabetic chronic kidney disease; E11.65 Type 2 diabetes mellitus with hyperglycemia; E55.9 Vitamin D deficiency, unspecified; E78.00 Pure hypercholesterolemia, unspecified; E78.5 Hyperlipidemia, unspecified; F17.200 Nicotine dependence, unspecified, uncomplicated; J44.9 Chronic obstructive pulmonary disease, unspecified; Z91.14 Patient's other noncompliance with medication regimen; Z99.2 Dependence on renal dialysis; Z88.0 Allergy status to penicillin; Z79.899 Other long term (current) drug therapy; Z71.6 Tobacco abuse counseling; Z59.0 Homelessness
CPT/HCPCS: 36245; 36561; 76000; 76937; 81050; 82306; 82575; 82607; 82728; 82746; 83036; 83540; 83550; 83605; 83735; 83970; 84100; 84156; 84443; 86704; 86706; 87040; 87340; 90935; 93005; 93306; 93970; 94640; C9113; J0690; J0885; J1644; J1815; J1940; J2250; J2310; J2704; J2916; J3010; J3370; J3475; J3490; J7030; J7050; J7060

== ENCOUNTER 2022-11-25 07:58 | Emergency (ER) | payer MEDICAID, OTHER ==
[~2022-11-25] VITALS: Ht 177.8 cm; Wt 85.0 kg
[~2022-11-25 07:58] MED LIST changes: +AMLO-258 PO; -AMLO-512 PO; +ASPI-1444 PO; +ATEN-72 PO; -ATEN50TA PO; +BLOO-140; +LANC-962; +[UNRECOGNIZED DRUG - CODE]; +[UNRECOGNIZED DRUG - CODE]
[2022-11-25 08:39] VITALS: BP 182/79
== END 2022-11-25 08:54 | disposition home or self-care (01) ==
LOC: EMS 08:03
DX: T82.838A Hemorrhage due to vascular prosthetic devices, implants and grafts, initial encounter (principal); E11.9 Type 2 diabetes mellitus without complications; E78.00 Pure hypercholesterolemia, unspecified; I10 Essential (primary) hypertension; F17.210 Nicotine dependence, cigarettes, uncomplicated; Z88.0 Allergy status to penicillin
CPT/HCPCS: 99283; Z7502

== ENCOUNTER 2025-05-30 12:01 | Emergency (ER) | payer OTHER ==
[~2025-05-30] VITALS: Ht 179.1 cm; Wt 79.2 kg
[~2025-05-30 12:01] MED LIST changes: -BLOO-140; -LANC-962; -[UNRECOGNIZED DRUG - CODE]; -[UNRECOGNIZED DRUG - CODE]
[2025-05-30 15:11] VITALS: BP 144/73; PULSE 98; RESP 18; TEMP 98; O2SAT 99
== END 2025-05-30 15:13 | disposition home or self-care (01) ==
LOC: EMS 12:03
DX: E11.311 Type 2 diabetes mellitus with unspecified diabetic retinopathy with macular edema (principal); E78.00 Pure hypercholesterolemia, unspecified; I10 Essential (primary) hypertension; F17.210 Nicotine dependence, cigarettes, uncomplicated; Z98.890 Other specified postprocedural states; Z79.4 Long term (current) use of insulin; Z79.82 Long term (current) use of aspirin; Z79.899 Other long term (current) drug therapy; Z86.73 Personal history of transient ischemic attack (TIA), and cerebral infarction without residual deficits; Z88.0 Allergy status to penicillin; Z98.41 Cataract extraction status, right eye; Z99.2 Dependence on renal dialysis
CPT/HCPCS: 70450; 99284